=== PATIENT | female | born 1980 | race Caucasian/White ===

== ENCOUNTER 2021-09-25 15:39 | Outpatient (CLI) | payer OTHER, BC, SELFPAY ==
--- NOTE | 2021-09-25 15:00 | CRLHL7_ITS ---
For Patients: As a result of the Century Cures Act, medical imaging exams and procedure reports are released immediately into your electronic medical record. You may view this report before your referring provider. If you have questions, please contact your health care provider. BILATERAL DIGITAL SCREENING MAMMOGRAM WITH COMPUTER-AIDED DETECTION, 09/25/2021 CLINICAL HISTORY: Routine screening exam. COMPARISON: None. TECHNIQUE: Digital mammogram in CC and MLO projections including computer-aided detection (CAD). BREAST COMPOSITION: There are areas of scattered fibroglandular density. FINDINGS: RIGHT Breast: No suspicious findings. LEFT Breast: Focal asymmetric density retroareolar plane slightly medial, 5 cm from the nipple. IMPRESSION: LEFT breast asymmetry/mass. RECOMMENDATIONS: Additional mammographic views of the LEFT breast including 3D spot compression CC/MLO. LEFT breast ultrasound may also be required. [facility] will be contacting the patient to arrange for this additional study. BI-RADS Category 0: Incomplete: Need Additional Imaging Evaluation A lay language report of this examination will be provided to the patient. Dictated by Dionicio Berg MD @ 09/26/2021 8:54:29 AM /Dictated by: Dionicio Berg MD @ 09/26/2021 8:53:00 AM (Electronically Signed)
== END 2021-09-25 15:40 | disposition home or self-care (01) ==
LOC: MAMMO 15:40
PROVIDERS: PCP Family Medicine; Visit Provider Physician Assistant
DX: Z12.31 Encounter for screening mammogram for malignant neoplasm of breast (principal); N63.20 Unspecified lump in the left breast, unspecified quadrant
CPT/HCPCS: 77063; 77067

== ENCOUNTER 2021-10-02 08:28 | Outpatient (CLI) | payer OTHER, BC, SELFPAY ==
--- NOTE | 2021-10-02 08:45 | CRLHL7_ITS ---
For Patients: As a result of the Cures Act, medical imaging exams and procedure reports are released immediately into your electronic medical record. You may view this report before your referring provider. If you have questions, please contact your health care provider. DIAGNOSTIC LEFT BREAST MAMMOGRAM WITH TOMOSYNTHESIS, 10/02/2021 LEFT BREAST ULTRASOUND, 10/02/2021 CLINICAL HISTORY: LEFT breast mass/asymmetry. COMPARISON: 09/25/2021. TECHNIQUE: Digital LEFT mammogram in 2 projections with tomosynthesis. Real-time ultrasound imaging of LEFT breast with imaging documentation. Scanning was performed by both the technologist and the radiologist. BREAST COMPOSITION: There are scattered areas of fibroglandular density FINDINGS: 3D spot-compression CC/MLO mammogram submitted. Decreased conspicuity of previously noted asymmetric density in the retroareolar plane LEFT breast. No architectural distortion. Targeted sonogram of the retroareolar plane performed. Normal fibroglandular tissue noted. No suspicious findings. IMPRESSION: Normal fibroglandular tissue retroareolar plane LEFT breast. No evidence of malignancy. RECOMMENDATIONS: Annual bilateral screening mammography. BI-RADS Category 2: Benign Results and recommendations discussed with the patient. Dictated by Dionicio Berg MD @ 10/02/2021 10:14:14 AM PT/Dictated by: Dionicio Berg MD @ 10/02/2021 10:14:00 AM (Electronically Signed)
--- NOTE | 2021-10-02 09:15 | CRLHL7_ITS ---
For Patients: As a result of the Century Cures Act, medical imaging exams and procedure reports are released immediately into your electronic medical record. You may view this report before your referring provider. If you have questions, please contact your health care provider. PLEASE SEE LEFT DIAGNOSTIC MAMMOGRAM OF SAME DAY. CRL:[email or web address] PT/Dictated by: Dionicio Berg MD @ 10/02/2021 10:14:00 AM (Electronically Signed)
== END 2021-10-02 08:29 | disposition home or self-care (01) ==
LOC: MAMMO 08:29
PROVIDERS: PCP Family Medicine; Visit Provider Physician Assistant
DX: N63.20 Unspecified lump in the left breast, unspecified quadrant (principal)
CPT/HCPCS: 76642; 77065; G0279

== ENCOUNTER 2023-07-24 18:39 | Emergency (ER) | payer OTHER, BC, SELFPAY ==
[2023-07-24 18:51] VITALS: BP 152/91; PULSE 91; RESP 16; TEMP 37.5; O2SAT 98; BMI 28.3
--- NOTE | 2023-07-24 18:56 | ED.GENADULT ---
HPI - General Adult General Time Seen by Provider: 18:56 Date Seen: 07/24/23 Chief complaint: Sore Throat Stated complaint: Sore throat Time Seen by Provider: 07/24/23 18:40 Source: patient and RN notes reviewed Mode of arrival: ambulatory Limitations: no limitations History of Present Illness HPI narrative: This 43-year-old female is coming in to the ER with complaint of a sore throat. She had originally went to urgent care but they were no longer taking new patients. She is had a sore throat since yesterday that has gotten progressively worse, does hurt to swallow. She has had a little headache, low-grade fever. Maybe felt a little dizzy. She has had no cough with this. She is status post tonsillectomy in 3rd grade. Her daughter was diagnosed with strep throat on Saturday, today is Saturday. No GI symptoms with this. Related Data Previous Rx's Medication Instructions Recorded norgestimate 0.25 mg-ethinyl 1 tab PO QDAY #84 tabs 07/04/23 estradiol 35 mcg tablet (Sprintec (28)) Allergies Allergy/AdvReac Type Severity Reaction Status Date / Time amoxicillin Allergy Intermediate Hives Verified 07/04/23 13:02 Review of Systems Narrative: As per HPI. [facility] Medical History History of vaginal delivery Thrombocytopenia affecting (10/2017) ?O99.119 - Other diseases of the blood and blood-forming organs and certain disorders involving the immune mechanism complicating , unspecified trimester (ICD-10) ?D69.6 - Thrombocytopenia, unspecified (ICD-10) Pre-eclampsia (10/2017) ?O14.90 - Unspecified pre-eclampsia, unspecified trimester (ICD-10) History of chlamydia infection ?Z86.19 - Personal history of other infectious and parasitic diseases (ICD-10) Surgical History History of tonsillectomy and adenoidectomy (1990) ?Z90.89 - Acquired absence of other organs (ICD-10) History of third molar tooth extraction ?K08.409 - Partial loss of teeth, unspecified cause, unspecified class (ICD-10) Family History Father Alzheimers disease, Onset Age: 49 Grandmother Diabetes Osteoporosis Uncle Diabetes Mother Osteoporosis Social History Narrative: . entry level administrative assistant. Nonsmoker. No EtOH. No regular exercise. 3 children. What is your current living situation?: I presently have a place to live Problems where you live: no known problems In the past 12 months, utilities in danger of being shut off: no In past 12 months, lack of transportation kept you from medical appts, meetings, work, or getting things needed for daily living: no In the past 12 mos, have been you worried that your food would run out before you had money to buy more?: never true In the past 12 mos, the food you bought just didn't last and you didn't have money to buy more?: never true Smoking Status: Never smoker Do you use any of these nicotine containing products: None Second hand tobacco smoke exposure: No How often do you have a drink containing alcohol: never How often do you have six or more drinks on one occasion: Never AUDIT-C Alcohol total score: 0 Non-prescribed substance use: denies use How often does anyone, including family, friends and others, physically hurt you: never How often does anyone, including family, friends and others, insult or talk down to you: never How often does anyone, including family, friends and others, threaten you with harm: never How often does anyone, including family, friends and others, scream or curse at you: never Little interest or pleasure in doing things: several days Feeling down, depressed, or hopeless: not at all service: No Exam Const: Vital Signs, click to edit/add: Vital Signs - 24 hr 07/24/23 18:51 Temperature 99.5 F Pulse Rate [Pulse Oximeter] 91 Respiratory Rate 16 Blood Pressure [Ri ght Upper Arm] 152/91 H Pulse Oximetry 98 Oxygen Delivery Me thod Room Air Patient is alert, interactive, no apparent distress. He face atraumatic, sclera clear, conjugate gaze, pupils equal round. Oropharynx with normal mucosa, prior scarring from tonsillectomy, no exudates or erythema. Tongue appears normal, mucosa is well hydrated, dentition good repair. She has some anterior cervical adenopathy that is mildly tender but not extensively enlarged not fluctuant. CV regular rate and rhythm no murmur. Documenting provider has reviewed patient's vital signs: yes Course Course ED Course: Nursing staff collected strep in triage. We will await this result. If this is negative, this could be other viral sources of pharyngitis. Reevaluation(s) Time of Reevaluation #1: 19:42 Reevaluation #1: Reviewed with patient that her strep is positive. She would like to take medications from [facility] as her pharmacy is currently closed. She has an amoxicillin allergy. Will prescribe her a Z-Jamison. Vital Signs Vital signs: Initial Vital Signs Temperature 99.5 F 07/24/23 18:51 Temperature Source Temporal Artery Scan 07/24/23 18:51 Pulse Rate 91 07/24/23 18:51 Respiratory Rate 16 07/24/23 18:51 Blood Pressure 152/91 H 07/24/23 18:51 Blood Pressure Mean 111 H 07/24/23 18:51 Blood Pressure Position Sitting 07/24/23 18:51 Pulse Oximetry 98 07/24/23 18:51 Oxygen Delivery Method Room Air 07/24/23 18:51 Vital Signs Temperature 99.5 F 07/24/23 18:51 Pulse Rate 91 07/24/23 18:51 Respiratory Rate 16 07/24/23 18:51 Blood Pressure 152/91 H 07/24/23 18:51 Pulse Oximetry 98 07/24/23 18:51 Oxygen Delivery Method Room Air 07/24/23 18:51 Temperature 99.5 F 07/24/23 18:51 Pulse Rate 91 07/24/23 18:51 Respiratory Rate 16 07/24/23 18:51 Blood Pressure 152/91 H 07/24/23 18:51 Pulse Oximetry 98 07/24/23 18:51 Oxygen Delivery Method Room Air 07/24/23 18:51 Medical Decision Making Lab Data Lab results reviewed: Yes I reviewed the patient's lab results Labs: Lab Results 07/24/23 Range/Units 18:38 Group A Strep DNA DETECTED A (Not Detectd) Discharge Plan Discharge Clinical Impression: Acute streptococcal pharyngitis Patient Disposition: Home, Self-Care Condition: Stable Instructions: Strep Throat (ED) Additional Instructions: Need to take 2-250mg tablets of the azithromycin daily for total of 5 days to treat for strep. Can use Tylenol and ibuprofen per bottle directions as needed for any fever pain control. If you are not improving over the next week or have any concerns, feel your worsening at any point, do need to seek re-evaluation. Activity Level: Activity as Tolerated Prescriptions: No Action norgestimate-ethinyl estradiol [Sprintec (28)] 0.25-35 mg-mcg tablet 1 tab PO QDAY Qty: 84 3RF Follow Up/Referrals: Dionicio Winston MD [Primary Care Provider] - Stand Alone Forms: Umbrella Here Info Instructions
[2023-07-24 19:26] LABS: Strep A DNA Probe* DETECTED (Not Detectd)
== END 2023-07-24 20:13 | disposition home or self-care (01) ==
PROVIDERS: Emergency Provider Family Medicine; PCP Family Medicine
DX: J02.0 Streptococcal pharyngitis (principal)
CPT/HCPCS: 87651; 99282; 99283